=== PATIENT | female | born 1950 | race Caucasian/White ===

== ENCOUNTER → 2018-03-11 09:35 | Outpatient (CLI) | payer MEDICARE, SELFPAY ==
--- NOTE | 2018-03-11 09:40 | RDU_ITS ---
Reason For Study: HTN Aorta Proximal abdominal aorta 1.71 x 1.9 cm . Distal abdominal aorta 1.26 x 1.33 cm . Proximal abdominal aorta peak systolic velocity is 70.2 cm/sec . Distal abdominal aorta peak systolic velocity is 65.7 cm/sec . Iliac Art 159 cm/s. Transplanted kidney measures 11.1 cm Cortex 1.51 cm Upper Pole Medula 32.8/10.0 PSV/EDV. Upper pole medulla EDR .31 . Upper pole medulla R.I. .69 . Upper Alexi Cortx 25.5/9.58 PSV/EDV. Upper pole cortex EDR .37 . Upper pole cortex R.I. .63 . Lower Pole medulla 41.0/12.8 PSV/EDV . Lower pole medulla EDR .31 . Lower pole medulla R.I. .69 . Lower Pole Cortex 31.5/9.12 PSV/EDV. Lower pole cortex EDR .29 . Lower pole cortex R.I. .71 . Hilar acceleration time 44 m/sec. Hilar avg 100/24.4 PSV/EDV. Renal artery ostium 122/25.7 RSV/EDV. Renal artery proximal 150/41.1 PSV/EDV. Renal artery mid 182/40.0 PSV/EDV. Renal artery distal 141/34.0 PSV/EDV. Pt with known polycystic kidney disease. Arterial flow difficult to determine in [place] [facility]. Pt is S/P kidney transplant. Interpretation Summary Dimensions of the intra-abdominal aorta appear normal, without evidence of aneurysmal dilatation. With regard to the transplated kidney: Renal artery velocities appear normal. Acceleration time is normal. There is no evidence of arterial inflow stenosis. Renovascular resistance appears normal. Cortical dimension appears normal. Kidney appears normal in size. Ordering Physician: Haresh Nelson Referring Physician: DOCTOR, OUT OF TOWN Performed By: Erick Welch, RVT
== END ==
PROVIDERS: Family Provider Family Medicine; PCP Family Medicine
DX: I97.3 Postprocedural hypertension (principal); R68.89 Other general symptoms and signs; Z48.22 Encounter for aftercare following kidney transplant; Z94.0 Kidney transplant status
CPT/HCPCS: 93975

== ENCOUNTER → 2019-01-24 10:59 | Outpatient (CLI) | payer MEDICARE, SELFPAY ==
[2018-02-05 15:40] VITALS: BMI 28.5
[2019-01-24 13:25] LABS: AST(SGOT) 32 U/L (15-37); Alanine Aminotransfer ALT/SGPT 39 U/L (13-56); Albumin, Serum 3.8 g/dL (3.2-5.0); Alkaline Phosphatase 116 U/L (45-117); Bilirubin, Direct 0.19 mg/dL (0.00-0.30); Cholesterol 156 mg/dL (200); Globulin 3.1 g/dL (2.2-4.2); High Density Lipoprotein 65 mg/dL; Protein, Total 6.9 g/dL (6.4-8.2); Triglycerides 152 mg/dL; Very Low Density Lipoprotein 30 mg/dL (5-40)
== END ==
PROVIDERS: Family Provider Family Medicine; PCP Family Medicine; Referring Provider Physician Assistant Medical; Visit Provider Physician Assistant Medical
DX: E78.5 Hyperlipidemia, unspecified (principal); Z79.899 Other long term (current) drug therapy
CPT/HCPCS: 36415; 80061; 80076

== ENCOUNTER → 2021-07-03 10:26 | Outpatient (CLI) | payer MEDICARE, SELFPAY ==
[2020-08-03 11:15] VITALS: BMI 29.1
[2021-07-03 13:05] LABS: Anion Gap 8 (5-15); BUN 18 mg/dL (7-18); BUN/Creat Ratio 12.4 RATIO (10-20); Calcium,Total 9.8 mg/dL (8.5-10.1); Chloride 103 mmol/L (98-107); Creatinine, Serum 1.45 mg/dL (0.55-1.02); EST Glomerular Filtration Rate 38 mL/min (>60); Est Glom Filt Rate - Afr Amer 46 mL/min (>60); Glucose 87 mg/dL (74-106); Potassium 4.5 mmol/L (3.5-5.1); Sodium Level 134 mmol/L (136-145)
== END ==
PROVIDERS: PCP Student in an Organized Health Care Education/Training Program; Visit Provider Internal Medicine Nephrology
DX: N39.0 Urinary tract infection, site not specified (principal); Z94.0 Kidney transplant status
CPT/HCPCS: 36415; 80048; 87086

== ENCOUNTER 2021-12-03 09:56 | Outpatient (CLI) | payer MEDICARE, SELFPAY ==
--- NOTE | 2021-12-03 10:09 | ECHOD_ITS ---
Reason For Study: MURMUR Procedure This was a 2D Doppler, Color Flow transthoracic echocardiogram. The exam was of adequate technical quality. Exam performed in department. Left Ventricle Normal LV size. Left ventricular systolic function is normal. The estimated ejection fraction is 65 %. No regional wall motion abnormalities noted. Right Ventricle Normal RV size. Normal systolic function. Atria The left atrium is mildly enlarged. Normal right atrium. No doppler evidence for ASD. Mitral Valve There is mild to moderate mitral annular calcification. Extension of the mitral annular calcification onto the posterior mitral leaflet. Trivial mitral valve insufficiency. Tricuspid Valve Normal tricuspid valve. Trivial tricuspid valve insufficiency. Right ventricular systolic pressure estimated to be 29 mmHg. Aortic Valve Trisinus/trileaflet aortic valve. Mild diffuse aortic valve thickening. Pulmonic Valve The pulmonic valve is not well visualized. Mild (1+) pulmonic valve insufficiency. Great Vessels The aortic root is not well visualized. Pericardium/Pleural No pericardial effusion. MMode/2D Measurements & Calculations LVIDd: 3.9 cm IVSd: 0.78 cm LAV(MOD-bp): 68.0 ml LVIDs: 2.5 cm LVPWd: 0.82 cm LAV(MOD-bp) Indexed: 41.0 ml/m2 RVDd: 2.9 cm FS: 35.7 % LAV(MOD-sp2): 60.6 ml LAV(MOD-sp4): 68.9 ml SV(MOD-sp4): 46.2 ml SV(sp4-el): 46.2 ml LVAd ap4: 24.2 cm2 LVLd ap4: 6.8 cm EDV(MOD-sp4): 72.8 ml EDV(sp4-el): 72.7 ml LVAs ap4: 13.3 cm2 LVLs ap4: 5.6 cm ESV(MOD-sp4): 26.6 ml ESV(sp4-el): 26.5 ml EF(MOD-sp4): 63.4 % EF(sp4-el): 63.5 % LA A4 area: 22.2 cm2 LA dimension(2D): 4.0 cm RA A4 area: 12.9 cm2 Doppler Measurements & Calculations MV E max karthikeyan: 92.9 cm/sec Lat Peak E' Karthikeyan: 4.8 cm/sec Med Peak E' Karthikeyan: 7.0 cm/sec MV A max karthikeyan: 75.9 cm/sec E/E' lat: 19.5 E/E' med: 13.2 MV E/A: 1.2 MV V2 max: 97.1 cm/sec Ao V2 max: 160.5 cm/sec LV V1 max: 138.9 cm/sec MV max P.8 mmHg Ao max P.3 mmHg LV V1 max P.7 mmHg MV V2 mean: 61.8 cm/sec MV mean P.7 mmHg MV V2 VTI: 36.9 cm PA V2 max: 98.0 cm/sec PI end-d karthikeyan: 72.4 cm/sec TR max karthikeyan: 256.9 cm/sec TR max P.4 mmHg MV P1/2t-pr_phl: 120.0 msec ECHO/Echo Complete Interpretation Summary Left ventricular systolic function is normal. The estimated ejection fraction is 65 %. The left atrium is mildly enlarged. There is mild to moderate mitral annular calcification. Extension of the mitral annular calcification onto the posterior mitral leaflet . Trivial mitral valve insufficiency. Trivial tricuspid valve insufficiency. Mild diffuse aortic valve thickening. Mild (1+) pulmonic valve insufficiency. Right ventricular systolic pressure estimated to be 29 mmHg. Transmitral diastolic flow velocities suggest diastolic dysfunction (pseudonorm al pattern). Ordering Physician: Damián Olson Referring Physician: TIKA GRIFFIN Performed By: Jessica Corbett, RDCS, RVT
== END 2021-12-03 23:59 | disposition short-term general hospital (02) ==
LOC: CVS 09:59
PROVIDERS: PCP Internal Medicine; Referring Provider Internal Medicine Cardiovascular Disease; Visit Provider Internal Medicine Cardiovascular Disease
DX: R01.1 Cardiac murmur, unspecified (principal); Z79.899 Other long term (current) drug therapy
CPT/HCPCS: 93306

== ENCOUNTER 2021-12-18 07:57 | Outpatient (CLI) | payer MEDICARE, SELFPAY ==
[2021-12-18 08:19] VITALS: BP 142/66; PULSE 81; RESP 16; TEMP 35.7; O2SAT 100; BMI 27.8
[2021-12-18] MEDS: 0.9% NaCl Peripheral Flush Adult/Peds IV (08:26)
[2021-12-18 08:49] VITALS: BP 126/64; PULSE 66; RESP 16; TEMP 35.7; O2SAT 98
[2021-12-18 09:08] VITALS: BP 124/64; PULSE 67; RESP 16; TEMP 36.1; O2SAT 100
== END 2021-12-18 23:59 | disposition short-term general hospital (02) ==
LOC: MEDOUTP 07:58
PROVIDERS: PCP Internal Medicine; Referring Provider Internal Medicine Hematology & Oncology; Visit Provider Internal Medicine Hematology & Oncology
DX: D69.3 Immune thrombocytopenic purpura (principal)
CPT/HCPCS: 36430; 86900; 86901; 86965; J7040; P9035; A4216